=== PATIENT | male | born 1995 | race Caucasian/White ===

== ENCOUNTER 2016-11-13 21:20 | Emergency (ER) | payer BC ==
[~2016-11-13] VITALS: Ht 172.7 cm; Wt 62.0 kg
[2016-11-13 21:23] VITALS: Ht 172.7 cm; Wt 62.0 kg
[2016-11-13] MEDS ORDERED: IBUPROFEN 600 MG TAB PO STA (21:32)
--- NOTE | 2016-11-13 22:29 | DIAGNOSTIC IMAGING REPORT ---
LEFT SHOULDER MIN 2 VIEWS ROUTINE CLINICAL HISTORY: 20 years-old Male presenting with post reduction. TECHNIQUE: Internal rotation and transscapular Y views of the left shoulder were obtained. COMPARISON: None. FINDINGS: No subluxation of the humeral head. Glenohumeral and acromioclavicular joints congruent. No acute fracture. Regional soft tissues normal. Visualized portion of the left hemithorax normal. IMPRESSION: No acute osseous injury of the left shoulder. No subluxation. Electronically signed by: Job Rodriguez M.D. 11/13/2016 10:28 PM Dictated Date/Time: 11/13/2016 10:27 PM
--- NOTE | 2016-11-13 22:43 | EMERGENCY ROOM VISIT NOTE ---
History First contact with patient: 21:24 Chief Complaint: SHOULDER DISLOCATION Stated Complaint: SHOULDER PAIN History of Present Illness The patient is a 20 year old male who presents to the Emergency Room with complaints of left shoulder dislocation. Patient states he was going up for a layup and collided with another player and his shoulder dislocated. He did not fall to the ground. No prior shoulder dislocation. Patient denies neck pain, elbow pain, numbness, tingling. Pain currently 8 out of 10. Movement makes it worse and nothing makes it better. It does not radiate. Pain described as throbbing. Review of Systems See HPI for pertinent positives & negatives. A total of 6 systems reviewed and were otherwise negative. Past Medical/Surgical History none Social History Smoking Status: Never Smoker Smokeless Tobacco Use: No Drug Use: none Occupation Status: [employer] student Current/Historical Medications No Active Prescriptions or Reported Meds Physical Exam Vital Signs Date Time Temp Pulse Resp B/P (MAP) Pulse Ox O2 Delivery O2 Flow Rate FiO2 11/13/16 21:23 36.7 94 16 131/84 99 Room Air Physical Exam VITALS: Vitals are noted on the nurse's note and reviewed by myself. Vital signs stable. GENERAL: Pleasant male, appears in pain, nondiaphoretic, well-developed well- nourished. SKIN: Capillary reflex less than 2 seconds. HEENT: Normocephalic. PERRLA. EOMI. Nares patent. Mucous membranes moist. Neck is supple without nuchal rigidity. HEART: Regular rate and rhythm without murmurs gallops or rubs. LUNGS: Clear to auscultation bilaterally without wheezes, rales or rhonchi. No retractions or accessory muscle use. ABDOMEN: Positive bowel sounds x 4. Normal tympanic percussion. Soft, nontender, without masses or organomegaly. Moore sign negative. No guarding or rebound tenderness. MUSCULOSKELETAL: The shoulder is slightly swollen and deformed on inspection. There is a palpable defect on the anterior aspect of the shoulder and the entire anterior shoulder is tender. The range of motion is markedly reduced in all directions because of the pain. There is no tenderness of the distal clavicle. NEURO: Patient was alert and oriented to person place and time. Normal sensation to light and sharp touch. No focal neurological deficits. Medical Decision & Procedures Medications Administered Medications (Trade) Dose Ordered Sig/Ganesh Route Start Time Stop Time Status Last Admin Dose Admin Ibuprofen (Motrin Tab) 600 mg NOW STAT PO 11/13/16 21:32 11/13/16 21:34 DC 11/13/16 21:40 600 MG Procedure Anterior Shoulder Dislocation Reduction Indication: Shoulder dislocation Verbal consent obtained. Risks and benefits were explained with the usual customary discussion. A time out was taken. Neurovascular examination before the procedure revealed intact. The left shoulder glenohumeral dislocation was reduced by placing the patient prone and applying gentle downward inline traction on the humerus, with the elbow flexed at 90 degrees, while scapula manipulation was applied. This resulted in an easy reduction without complication. Neurovascular examination after the procedure revealed intact. The patient had significant pain relief and tolerated the procedure well. ED Course Prior records/ancillary studies reviewed. Triage Nursing notes reviewed. Additional history obtained from friends. The patient's history was concerning for shoulder pain. Differential diagnosis: Etiologies such as musculoskeletal, dislocation, fracture, sprain, strain, tendinitis, as well as others were entertained. Physical findings: As above. No focal neurologic findings noted. ER treatment provided: Motrin On reassessment the patient felt better. Diagnostics interpreted by me: Imaging studies: Shoulder x-ray proper realignment postreduction of the shoulder per my interpretation This appears to be consistent with shoulder dislocation that was reduced by myself. Patient was neurovascularly and neurologically intact. He is placed in a sling. Neurovascular status was rechecked after placement and is intact. He was advised follow-up orthopedics in a few days or here in the ER sooner for pain, numbness, tingling, worsening signs or symptoms or as needed. By the evaluation outlined above emergent etiologies such as fracture, as well as others were deemed relatively unlikely. The pt informed about the findings as listed above. All questions were answered and pleased with the treatment. Return instructions were outlined and the patient was discharged in stable condition. Referral: The patient was referred orthopedics for follow-up in 2 to 3 days for a recheck of the current condition. Case reviewed with my attending Medical Decision as above Medication Reconcilliation Current Medication List: was personally reviewed by me Blood Pressure Screening Patient's blood pressure: Normal blood pressure Impression Primary Impression: Anterior dislocation of left shoulder Departure Information Dispostion Home / Self-Care Condition GOOD Prescriptions No Active Prescriptions or Reported Meds Referrals No Doctor, Assigned (PCP) Patient Instructions My [facility] Additional Instructions Ibuprofen(Motrin, Advil) may be used for fever or pain. Use 600mg every six hours as needed. Take with food. Avoid using more than 2400mg in a 24 hour period. Do not use 2400mg per day for more than three consecutive days without physician direction. Prolonged inappropriate use can lead to stomach upset or ulcers. This medication can be taken if you need to drive, work, or perform activities which may be dangerous when taking narcotic pain medication. (AND/OR) Acetaminophen(Tylenol) may be used for fever or pain. Use 1000mg every six hours as needed. Avoid using more than 3000mg in a 24 hour period. This medication can be taken if you need to drive, work, or perform activities which may be dangerous when taking narcotic pain medication. Ice compresses for 20 minutes at a time four times daily for 2-3 days. Use the sling as instructed. Remove your arm from the sling 4-6 times a day and move all the joints around to keep them loose. Rest and elevate your injury. Continue current medications. Return to the ER immediately for any numbness, tingling, severe pain, extreme swelling in the extremity or as needed. Call Orthopedics tomorrow to arrange follow up for your injury. Problem Qualifiers Primary Impression: Anterior dislocation of left shoulder Encounter type: initial encounter Qualified Codes: S43.015A - Anterior dislocation of left humerus, initial encounter
[2016-11-13 22:56] VITALS: BP 131/84; PULSE 94; TEMP 36.7; O2SAT 99
== END 2016-11-13 22:57 | disposition home or self-care (01) ==
LOC: C.EDB 21:20 → C.EDA 22:57
DX: S43.015A Anterior dislocation of left humerus, initial encounter (principal); W50.0XXA Accidental hit or strike by another person, initial encounter

== ENCOUNTER 2017-11-05 09:48 | Emergency (ER) | payer BC ==
[~2017-11-05] VITALS: Ht 172.7 cm; Wt 58.6 kg
[2017-11-05] VITALS (9 sets, daily range): BP systolic 114–149; BP diastolic 63–92; PULSE 72–92; TEMP 36.8; O2SAT 96–100; Ht 172.7 cm; Wt 58.6 kg
[~2017-11-05 09:48] MED LIST: ESCI1TAB10 PO
--- NOTE | 2017-11-05 10:49 | DIAGNOSTIC IMAGING REPORT ---
L SHOULDER 1 VIEW CLINICAL HISTORY: 21 years-old Male presenting with DISLOCATION. TECHNIQUE: Single frontal view of the left shoulder was obtained. COMPARISON: None. FINDINGS: Anterior left humeral head dislocation. No gross evidence of fracture allowing for the single view. No soft tissue abnormality. Left lung clear. IMPRESSION: Anterior left humeral head dislocation. Electronically signed by: Job Rodriguez M.D. 11/05/2017 10:48 AM Dictated Date/Time: 11/05/2017 10:47 AM
[2017-11-05] MEDS ORDERED: ONDANSETRON INJ 2 MG/ML 2 ML VIAL IV STA (10:53)
[2017-11-05] MEDS ORDERED: PROPOFOL IV EMULSION 10 MG/ML 100 ML VIAL IV STA (10:53)
[2017-11-05] MEDS ORDERED: PROPOFOL IV EMULSION 10 MG/ML 20 ML VIAL ONE (10:56)
[2017-11-05] MEDS ORDERED: ONDANSETRON INJ 2 MG/ML 2 ML VIAL ONE (10:56)
[2017-11-05] MEDS ORDERED: FENTANYL CITRATE INJ 50 MCG/1 ML 2 ML VIAL ONE (11:15)
--- NOTE | 2017-11-05 11:40 | DIAGNOSTIC IMAGING REPORT ---
L SHOULDER MIN 2 VIEWS ROUTINE CLINICAL HISTORY: 21 years-old Male presenting with post reduction. TECHNIQUE: Frontal and transcatheter Y views of the left shoulder were obtained. COMPARISON: 03/24/2016 and plain radiograph from earlier today.. FINDINGS: There has been interval reduction of the anterior dislocation of the left humeral head. Glenohumeral and acromioclavicular joints now congruent. Bone island suspected in the humeral head. No acute fracture or residual subluxation. No degenerative change. No radiographic soft tissue abnormality. IMPRESSION: Successful reduction of the anterior left humeral head dislocation. No radiographic evidence of fracture. Electronically signed by: Job Rodriguez M.D. 11/05/2017 11:38 AM Dictated Date/Time: 11/05/2017 11:37 AM
--- NOTE | 2017-11-05 12:42 | EMERGENCY ROOM VISIT NOTE ---
Pre-Mod Sedation Assessment General Date of Moderate Sedation: Nov 05, 2017. Vital Signs: Vital Signs Past 12 Hours Date Time Temp Pulse Resp B/P (MAP) Pulse Ox O2 Delivery O2 Flow Rate FiO2 11/05/17 11:56 91 24 117/71 98 Room Air 11/05/17 11:47 79 23 123/72 100 Room Air 11/05/17 11:43 78 16 117/74 97 Room Air 11/05/17 11:39 72 14 121/74 100 Room Air 11/05/17 11:38 75 16 122/84 100 Room Air 11/05/17 11:27 74 20 131/85 100 Room Air 11/05/17 11:18 89 24 114/69 100 Oxymask 5.0 11/05/17 11:13 87 22 149/92 100 Nasal Cannula 2.0 11/05/17 11:10 92 18 140/86 100 Nasal Cannula 2.0 11/05/17 10:33 72 11/05/17 10:31 77 135/86 99 Room Air 11/05/17 09:49 36.8 102 20 119/77 97 Room Air Review Cardiovascular: regular rate, rhythm Abdomen: normal bowel sounds, non tender, soft Lungs: lungs clear, normal breath sounds Airway Class: I Pre-Sedation Airway Assessment Oral Cavity: WNL Short Thick Neck: No Hx of Sleep Apnea: No Smoking Status: Never Smoker Mallampati Classification: Class I ASA Classification: Class I Procedure Planning Contraindications-for Mod Sed: None Yes Notes The planned sedation has been discussed with the patient and consent obtained. I have identified the patient, determined the appropriateness of sedation and have assessed the patient immediately prior to the procedure. All medicine(s) and interventions are by my order.
--- NOTE | 2017-11-05 12:46 | EMERGENCY ROOM VISIT NOTE ---
Post-Moderate Sedation Plan General Date of Moderate Sedation Nov 05, 2017. Vital Signs: Vital Signs Past 12 Hours Date Time Temp Pulse Resp B/P (MAP) Pulse Ox O2 Delivery O2 Flow Rate FiO2 11/05/17 12:44 83 16 114/63 96 Room Air 11/05/17 11:56 91 24 117/71 98 Room Air 11/05/17 11:47 79 23 123/72 100 Room Air 11/05/17 11:43 78 16 117/74 97 Room Air 11/05/17 11:39 72 14 121/74 100 Room Air 11/05/17 11:38 75 16 122/84 100 Room Air 11/05/17 11:27 74 20 131/85 100 Room Air 11/05/17 11:18 89 24 114/69 100 Oxymask 5.0 11/05/17 11:13 87 22 149/92 100 Nasal Cannula 2.0 11/05/17 11:10 92 18 140/86 100 Nasal Cannula 2.0 11/05/17 10:33 72 11/05/17 10:31 77 135/86 99 Room Air 11/05/17 09:49 36.8 102 20 119/77 97 Room Air Review - Discharge Plan Post Moderate Sedation Plan: On clinical assessment, the patient appears to have tolerated the conscious sedation without complications. Patient is recovering as anticipated. Patient will continue to be monitored by nursing and may be discharged when conscious sedation discharge criteria are met.
--- NOTE | 2017-11-05 12:56 | EMERGENCY ROOM VISIT NOTE ---
History Report prepared by David: Mc Cowart Under the Supervision of: Dr. Fish Nash M.D. First contact with patient: 09:51 Chief Complaint: SHOULDER DISLOCATION Stated Complaint: DISLOCATED SHOULDER History of Present Illness The patient is a 21 year old male who presents to the Emergency Room with complaints of constant and severe pain in the left shoulder that began about 30 minutes ago. The patient states that he was moving his things into his dorm the left shoulder dislocated. This is the 5th time the patient has dislocated the left shoulder. He has been sedated for reductions in the past. The last time the shoulder dislocated was 6-7 months ago. The pain in the shoulder is worsened with any movement of LUE. Source of History: patient Onset: 30 minutes ago Position: shoulder (left) Quality: other (dislocation) Timing: constant Modifying Factors (Worsening): movement (of LUE) Review of Systems See HPI for pertinent positives and negatives. A total of ten systems were reviewed and were otherwise negative. Past Medical & Surgical Hx of LUE shoulder dislocation. Social History Smoking Status: Never Smoker Drug Use: none Housing Status: lives with roommate Occupation Status: [employer] student Current/Historical Medications No Active Prescriptions or Reported Meds Allergies Coded Allergies: No Known Allergies (Unverified , 11/05/17) Physical Exam Vital Signs Date Time Temp Pulse Resp B/P (MAP) Pulse Ox O2 Delivery O2 Flow Rate FiO2 11/05/17 12:44 83 16 114/63 96 Room Air 11/05/17 11:56 91 24 117/71 98 Room Air 11/05/17 11:47 79 23 123/72 100 Room Air 11/05/17 11:43 78 16 117/74 97 Room Air 11/05/17 11:39 72 14 121/74 100 Room Air 11/05/17 11:38 75 16 122/84 100 Room Air 11/05/17 11:27 74 20 131/85 100 Room Air 11/05/17 11:18 89 24 114/69 100 Oxymask 5.0 11/05/17 11:13 87 22 149/92 100 Nasal Cannula 2.0 11/05/17 11:10 92 18 140/86 100 Nasal Cannula 2.0 11/05/17 10:33 72 11/05/17 10:31 77 135/86 99 Room Air 11/05/17 09:49 36.8 102 20 119/77 97 Room Air Physical Exam Physical Exam GENERAL: He is oriented to person, place, and time. He appears well-developed and well-nourished. He does not appear distressed. HENT: Exam performed. Head: Normocephalic and atraumatic. Right Ear: External ear normal. No mastoid tenderness. Left Ear: External ear normal. No mastoid tenderness. Mouth/Throat: The oropharynx is clear and moist. No trismus in the jaw. No dental abscesses or uvula swelling. No oropharyngeal exudate or tonsillar abscesses. EYES: Conjunctivae and EOM are normal. Pupils are equal, round, and reactive to light. Right eye exhibits no discharge. Left eye exhibits no discharge. No scleral icterus. NECK: Normal range of motion. Neck supple. No JVD present. No spinous process tenderness present. No carotid bruit present. No rigidity. No tracheal deviation and normal range of motion present. No Brudzinski's sign and no Kernig 's sign noted. CV: Normal rate, regular rhythm, normal heart sounds and intact distal pulses. There is no peripheral edema. Palpable radial pulses bue. PULM/CHEST: Effort normal and breath sounds normal. No respiratory distress. No stridor. He has no wheezes. He has no rales. Chest Wall: He exhibits no tenderness. ABD: The abdomen is soft. Bowel sounds are normal. He has no distension. No mass is present. There is no tenderness. There is no rebound, no guarding, no Moore's sign and no tenderness at McBurney's point. Rovsig negative. MUSC/SKEL: There is obvious deformity of the left shoulder. There are palpable radial and ulnar pulses. LYMPH: No cervical adenopathy. NEURO: He is alert and oriented to person, place, and time. He has normal strength. No cranial nerve deficit or sensory deficit. Coordination and gait normal. GCS eye subscore is 4. GCS verbal subscore is 5. GCS motor subscore is 6. Cerebellar tests wnl. SKIN: Skin is warm and dry. He is not diaphoretic. PSYCH: He has a normal mood and affect. Behavior is normal. Judgment and thought content normal. Medical Decision & Procedures ER Provider Diagnostic Interpretation: Radiology results as stated below per my review and radiologist interpretation: L SHOULDER MIN 2 VIEWS ROUTINE CLINICAL HISTORY: 21 years-old Male presenting with post reduction. TECHNIQUE: Frontal and transcatheter Y views of the left shoulder were obtained. COMPARISON: 03/24/2016 and plain radiograph from earlier today.. FINDINGS: There has been interval reduction of the anterior dislocation of the left humeral head. Glenohumeral and acromioclavicular joints now congruent. Bone island suspected in the humeral head. No acute fracture or residual subluxation. No degenerative change. No radiographic soft tissue abnormality. IMPRESSION: Successful reduction of the anterior left humeral head dislocation. No radiographic evidence of fracture. Electronically signed by: Job Rodriguez M.D. 11/05/2017 11:38 AM Dictated Date/Time: 11/05/2017 11:37 AM L SHOULDER 1 VIEW CLINICAL HISTORY: 21 years-old Male presenting with DISLOCATION. TECHNIQUE: Single frontal view of the left shoulder was obtained. COMPARISON: None. FINDINGS: Anterior left humeral head dislocation. No gross evidence of fracture allowing for the single view. No soft tissue abnormality. Left lung clear. IMPRESSION: Anterior left humeral head dislocation. Electronically signed by: Job Rodriguez M.D. 11/05/2017 10:48 AM Dictated Date/Time: 11/05/2017 10:47 AM Medications Administered Medications (Trade) Dose Ordered Sig/Ganesh Route Start Time Stop Time Status Last Admin Dose Admin Ondansetron HCl (Zofran Inj) 4 mg NOW STAT IV 11/05/17 10:53 11/05/17 10:56 DC 11/05/17 11:04 4 MG Propofol (Diprivan Iv Emulsion 20ml Vial) 200 mg STK-MED ONCE .ROUTE 11/05/17 10:56 11/05/17 10:57 DC 11/05/17 11:17 10 MG Fentanyl Citrate (Fentanyl Inj) 100 mcg STK-MED ONCE .ROUTE 11/05/17 11:15 11/05/17 11:16 DC 11/05/17 11:19 50 MCG Procedure Procedural Sedation Indication Shoulder Reduction. Total time: 31 minutes. Written consent was obtained after the risks and benefits were explained to the patiend, including, but not limited to aspiration, allergic reaction, breathing difficulties, cardiac complications, vomiting, pain, event recall, bleeding, and /or infection. Pre-sedation examination and paperwork completed. The patient was on 100% oxygen via NRB prior to the procedure. Continous end tidal CO2 monitoring, pulse oximetry, and cardiac monitoring were utilized. Suction, airway equipment, medications, respiratory equipment, and appropriate personnel were prepared prior to the initiation of the procedure. A time out was taken. Sedation was achieved utilizing 120 mg of Propofol. After I observed the patient had reached the appropriate level of sedation the main procedure was performed without complication. Sedation was discontinued and the monitoring continued. The patient recovered quickly from the effects of the medication without complication or adverse event. Anterior Shoulder Dislocation Reduction Indication: L shoulder dislocation Verbal consent obtained. Risks and benefits were explained with the usual customary discussion. A time out was taken. Neurovascular examination before the procedure revealed no deficitis. The L shoulder glenohumeral dislocation was reduced via external rotation and placed in shoulder immobilizer. This resulted in an easy reduction without complication. Neurovascular examination after the procedure revealed no defecits. The patient had significant pain relief and tolerated the procedure well. Postreduction film showed successful reduction and no fractures. ED Course 0954: The patient was evaluated in room B1. A complete history and physical exam was performed. 1053: X-ray shows anterior shoulder dislocation. Ordered Zofran 4 mg IV. I performed conscious sedation. PA attempted to reduce shoulder but was unsuccesful so I reduced the patients shoulder without difficulty on first attempt. 1247: Vital signs stable. Patient awake oriented x4. Patient will follow up with orthopedics. DISCHARGE - Plan of care discussed with patient and questions answered. The patient was given both verbal and printed discharge instructions. The patient verbalized understanding and ability to comply. The patient is to seek outpatient follow up as noted in the discharge instructions. The patient verbalized understanding and ability to comply. The patient is discharged in stable condition. The patient was instructed to return for worsening symptoms. Medical Decision 0954: The patient was evaluated in room B1. A complete history and physical exam was performed. 1053: X-ray shows anterior shoulder dislocation. Ordered Zofran 4 mg IV. I performed conscious sedation while the shoulder was reduced. See further documentation. 1247: Vital signs stable. Patient awake oriented x4. Patient will follow up with orthopedics. DISCHARGE - Plan of care discussed with patient and questions answered. The patient was given both verbal and printed discharge instructions. The patient verbalized understanding and ability to comply. The patient is to seek outpatient follow up as noted in the discharge instructions. The patient verbalized understanding and ability to comply. The patient is discharged in stable condition. The patient was instructed to return for worsening symptoms. Medication Reconcilliation Current Medication List: was personally reviewed by me Blood Pressure Screening Patient's blood pressure: Normal blood pressure Impression Primary Impression: Shoulder dislocation Scribe Attestation The scribe's documentation has been prepared under my direction and personally reviewed by me in its entirety. I confirm that the note above accurately reflects all work, treatment, procedures, and medical decision making performed by me. The chart was completed utilizing [employer] Speech voice recognition software. Grammatical errors, random word insertions, pronoun errors, and incomplete sentences are an occasional consequence of this system due to software limitations, ambient noise, and hardware issues. Any formal questions or concerns about the content, text, or information contained within the body of this dictation should be directly addressed to the physician for clarification. Departure Information Dispostion Home / Self-Care Prescriptions No Active Prescriptions or Reported Meds Referrals No Doctor, Assigned (PCP) Patient Instructions My [facility] Problem Qualifiers Primary Impression: Shoulder dislocation Encounter type: initial encounter Laterality: left Qualified Codes: S43.005A - Unspecified dislocation of left shoulder joint, initial encounter
== END 2017-11-05 12:56 | disposition home or self-care (01) ==
LOC: C.EDB 09:49
DX: S43.005A Unspecified dislocation of left shoulder joint, initial encounter (principal); X50.0XXA Overexertion from strenuous movement or load, initial encounter; Y92.169 Unspecified place in school dormitory as the place of occurrence of the external cause; Y93.E6 Activity, residential relocation